=== PATIENT | female | born 1985 | race Two or more races ===

== ENCOUNTER 2018-08-15 11:50 | Emergency (ER) | payer BC ==
[2018-08-15 11:55] VITALS: BP 141/83
[2018-08-15] MEDS ORDERED: NORMAL SALINE 1000 ML 1,000 ML IV ONE (12:01)
[2018-08-15] MEDS ORDERED: HYDROMORPHONE HCL INJ/PF 2 MG/ML AMPULE IV ONE (12:02)
[2018-08-15] MEDS ORDERED: ONDANSETRON HCL INJ/PF 4 MG/2 ML SDV IV ONE (12:02)
--- NOTE | 2018-08-15 12:04 | ER Document Report ---
ED Medical Screen (RME) - General Chief Complaint: Possible Kidney Stone Stated Complaint: FLANK PAIN Time Seen by Provider: 08/15/18 11:59 Notes: Patient is a 32-year-old female that presents to the emergency department for chief complaint of right flank pain. Pain started this morning around 8 AM, got progressively worse, she did receive 60 mill grams of IM Toradol prior to ED arrival, patient works at an urgent care, her urine tested positive for blood , and she came over to the emergency department. No prior history of kidney stones, she does not believe that she is . ROS: Unless otherwise stated in this report the patient's positive and negative responses for review of systems for constitutional, eyes, ENT, cardiovascular, respiratory, gastrointestinal, neurological, genitourinary, musculoskeletal, and integumentary systems and related systems to the presenting problem are either as stated in the HPI or were not pertinent or were negative for the symptoms and/or complaints related to the presenting medical problem. PHYSICAL EXAMINATION: Vital signs reviewed. GENERAL: Well appearing, well-developed, does appear to be in significant pain HEAD: Atraumatic, normocephalic. EYES: Pupils equal round extraocular movements intact, conjunctiva are normal. ENT: Nares patent NECK: Normal range of motion CV: Heart regular rate and rhythm LUNGS: No respiratory distress Abdomen: Right flank tenderness to palpation Musculoskeletal: Normal range of motion NEUROLOGICAL: Normal speech PSYCH: Normal mood, normal affect. MDM: Patient seen and examined for rapid initial assessment. Vital signs reviewed. A comprehensive ED assessment and evaluation of the patient, analysis of test results and completion of the medical decision making process will be conducted by additional ED providers. *Note is created using voice recognition software and may contain spelling, syntax or grammatical errors. Physical Exam - Vital signs Vitals: Temp Pulse Resp BP Pulse Ox 97.7 F 68 18 141/83 H 100 08/15/18 11:54 08/15/18 11:54 08/15/18 11:54 08/15/18 11:54 08/15/18 11:54 Course - Vital Signs Vital signs: Temp Pulse Resp BP Pulse Ox 97.7 F 68 18 141/83 H 100 08/15/18 11:54 08/15/18 11:54 08/15/18 11:54 08/15/18 11:54 08/15/18 11:54
[2018-08-15 13:07] LABS: ABSOLUTE LYMPHOCYTES (AUTO) 1.1 10^3/uL (0.5-4.7); ABSOLUTE MONOCYTES (AUTO) 0.3 10^3/uL (0.1-1.4); ABSOLUTE NEUT (AUTO) 9.1 10^3/uL (1.7-8.2); BASOPHILS % (AUTO) 0.3 % (0-2); EOSINOPHILS % (AUTO) 0.1 % (0-6); HEMATOCRIT 44.2 % (36.0-47.0); HEMOGLOBIN 15.1 g/dL (12.0-15.5); LYMPHOCYTES % (AUTO) 10.4 % (13-45); MEAN CORPUSCULAR HGB CONC 34.1 g/dL (32.0-36.0); MEAN CORPUSCULAR VOLUME 91 fl (80-97); MONOCYTES % (AUTO) 2.4 % (3-13); PLATELET COUNT 251 10^3/uL (150-450); RED BLOOD COUNT 4.86 10^6/uL (3.72-5.28); RED CELL DISTRIBUTION WIDTH 12.2 % (11.5-14.0); SEGMENTED NEUTROPHILS % (AUTO) 86.8 % (42-78); TOTAL CELLS COUNTED % (AUTO) 100 %; WHITE BLOOD COUNT 10.4 10^3/uL (4.0-10.5)
[2018-08-15 13:15] LABS: APPEARANCE,URINE CLOUDY; BILIRUBIN,URINE NEGATIVE (NEGATIVE); COLOR,URINE YELLOW; GLUCOSE, URINE NEGATIVE (NEGATIVE); KETONES,URINE 20 mg/dL (NEGATIVE); LEUKOCYTE ESTERASE,URINE NEGATIVE (NEGATIVE); NITRITE,URINE NEGATIVE (NEGATIVE); PROTEIN,URINE 100 mg/dL (NEGATIVE); URINE SPECIFIC GRAVITY 1.021; UROBILINOGEN,URINE NEGATIVE mg/dL (<2.0)
--- NOTE | 2018-08-15 14:30 | RADIOLOGY REPORT (SQ) ---
EXAM DESCRIPTION: CT ABD/PELVIS NO ORAL OR IV COMPLETED DATE/TIME: 08/15/2018 2:17 pm REASON FOR STUDY: right flank pain COMPARISON: None. TECHNIQUE: CT scan of the abdomen and pelvis performed without intravenous or oral contrast. Images reviewed with lung, soft tissue, and bone windows. Reconstructed coronal and sagittal MPR images revi ewed. All images stored on PACS. All CT scanners at this facility use dose modulation, iterative reconstruction, and/or weight based d osing when appropriate to reduce radiation dose to as low as reasonably achievable (ALARA). [facility]: Dose Right [facility]: CareDose [facility]: Dose Right [facility]: Teradose 4D [facility]: Pheed RADIATION DOSE: CT Rad equipment meets quality standard of care and radiation dose reduction techniq ues were employed. CTDIvol: 4.8 mGy. DLP: 239 mGy-cm.mGy. LIMITATIONS: None. FINDINGS: LOWER CHEST: No significant findings. No nodules or infiltrates. NON-CONTRASTED LIVER, SPLEEN, ADRENALS: Evaluation limited by lack of IV contrast. No identified sign ificant masses. PANCREAS: No masses. No peripancreatic inflammatory changes. GALLBLADDER: No identified stones by CT criteria. No inflammatory changes to suggest cholecystitis. RIGHT KIDNEY AND URETER: No suspicious masses. Assessment limited by lack of IV contrast. 3 mm ston e in the UPJ. Similar size stone in the kidney. Mild hydronephrosis. LEFT KIDNEY AND URETER: No suspicious masses. Assessment limited by lack of IV contrast. No signifi cant calcifications. No hydronephrosis or hydroureter. AORTA AND RETROPERITONEUM: No aneurysm. No retroperitoneal masses or adenopathy. BOWEL AND PERITONEAL CAVITY: No obvious masses or inflammatory changes. No free fluid. APPENDIX: Normal. PELVIS, BLADDER, AND ABDOMINAL WALL:No abnormal masses. No free fluid. Bladder normal. BONES: No significant findings. OTHER: No other significant finding. IMPRESSION: 3 mm stone right UPJ. Mild hydronephrosis. COMMENT: Quality ID # [id number]: Final reports with documentation of one or more dose reduction techniques (e.g., Automated exposure control, adjustment of the mA and/or kV according to patient size, use of iterative reconstruction technique) TECHNICAL DOCUMENTATION: JOB ID: [id number] [employer]- All Rights Reserved Reading location - IP/workstation name: [email or web address]
--- NOTE | 2018-08-15 14:44 | ER Document Report ---
ED General - General Chief Complaint: Possible Kidney Stone Stated Complaint: FLANK PAIN Time Seen by Provider: 08/15/18 11:59 Notes: Patient is a 32-year-old female that presents to the emergency department for chief complaint of right flank pain. 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 She has never had one before, but has seen patients that have had similar symptoms. She did get 60 mg of IM Toradol prior to coming to the emergency department. She rates her pain currently as a 10 out of 10, describes as a sharp and stabbing sensation in her right flank, that radiates towards the groin. She denies any preceding dysuria, hematuria, fevers, chills, night sweats. She does not believe that she is . She denies having any vomiting, but admits to having nausea. Past Medical History: Denies chronic medical conditions Past Surgical History: Tonsillectomy Social History: Denies tobacco, alcohol or drug use Family History: Reviewed and noncontributory for presenting illness Allergies: Reviewed, see documented allergy list. REVIEW OF SYSTEMS: Unless otherwise stated in this report the patient's positive and negative responses for review of systems for constitutional, eyes, ENT, cardiovascular, respiratory, gastrointestinal, neurological, genitourinary, musculoskeletal, and integumentary systems and related systems to the presenting problem are either as stated in the HPI or were not pertinent or were negative for the symptoms and/or complaints related to the presenting medical problem. PHYSICAL EXAMINATION: Vital signs reviewed, nursing noted reviewed. GENERAL: Well-appearing, well-nourished and appears to be in significant pain HEAD: Atraumatic, normocephalic. EYES: Eyes appear normal, extraocular movements intact, sclera anicteric, conjunctiva are normal. ENT: nares patent, oropharynx clear without exudates. Moist mucous membranes. NECK: Normal range of motion, supple without lymphadenopathy LUNGS: Breath sounds clear to auscultation bilaterally and equal. No wheezes rales or rhonchi. HEART: Regular rate and rhythm without murmurs ABDOMEN: Soft, right CVA tenderness with palpation, normoactive bowel sounds. No rebound, guarding, or rigidity. No masses appreciated. EXTREMITIES: Nontender, good range of motion, no pitting or edema. NEUROLOGICAL: No focal neurological deficits. Moves all extremities spontaneously Motor and sensory grossly intact on exam. PSYCH: Patient is uncomfortable, but is appropriate SKIN: Warm, Dry, normal turgor, no rashes or lesions noted on exposed skin Past Medical History - Social History Smoking Status: Former Smoker Chew tobacco use (# tins/day): No Frequency of alcohol use: None Drug Abuse: None Family History: Reviewed & Not Pertinent Patient has suicidal ideation: No Patient has homicidal ideation: No Pulmonary Medical History: Reports: Hx Asthma Neurological Medical History: Reports: Hx Migraine Renal/ Medical History: Denies: Hx Peritoneal Dialysis Past Surgical History: Reports: Hx Tonsillectomy Physical Exam - Vital signs Vitals: Temp Pulse Resp BP Pulse Ox 97.7 F 68 18 141/83 H 100 08/15/18 11:54 08/15/18 11:54 08/15/18 11:54 08/15/18 11:54 08/15/18 11:54 Course - Re-evaluation Re-evalutation: Patient seen and examined vital signs reviewed. Laboratory data and imaging were ordered as appropriate for the patient's presenting symptoms and complaint, with consideration of any critical or life threatening conditions that may be associated with their obtained history and exam as noted above. Patient was treated with IV fluids, Zofran, and 0.5 mg of IV Dilaudid Results were reviewed when available and demonstrated CT demonstrated 3 mm ureteral stone, which is consistent with the patient's symptoms, is at the [facility] patient be treated for this, she was much improved after medications, no complaints of pain. No nausea or vomiting. Urinalysis did not demonstrate signs of infection, only hematuria, her blood work did not demonstrate any leukocytosis, she did have an elevation in her lipase, however the patient did not have any epigastric pain, this may be reactionary from dry heaving, advised patient to follow-up if her symptoms worsen, or pain was not controlled at home , which she was agreeable. I do not believe this patient has acute pancreatitis , her CT imaging did not demonstrate peripancreatic stranding either. Evaluation was most consistent with right ureteral stone patient discharged home with Flomax, urinary strainer, naproxen, and Percocet to take for pain. Given urology to follow-up with Results were discussed with the patient at this point, after careful consideration I feel that that patient can be discharged from the emergency department, the patient was educated treatments and reasons to return to the emergency department based on their presumed diagnosis as noted above, they were advised to followup with a primary care physician in 2-3 days. Patient was agreeable to plan of care. *Note is created using voice recognition software and may contain spelling, syntax or grammatical errors. Laboratory 08/15/18 08/15/18 08/15/18 12:21 12:42 12:42 WBC 10.4 RBC 4.86 Hgb 15.1 Hct 44.2 MCV 91 MCH 31.0 MCHC 34.1 RDW 12.2 Plt Count 251 Seg Neutrophils % 86.8 H Lymphocytes % 10.4 L Monocytes % 2.4 L Eosinophils % 0.1 Basophils % 0.3 Absolute Neutrophils 9.1 H Absolute Lymphocytes 1.1 Absolute Monocytes 0.3 Absolute Eosinophils 0.0 Absolute Basophils 0.0 Sodium Cancelled Potassium Cancelled Chloride Cancelled Carbon Dioxide Cancelled Anion Gap Cancelled BUN Cancelled Creatinine Cancelled Est GFR ( Amer) Cancelled Est GFR (Non-Af Amer) Cancelled Glucose Cancelled Calcium Cancelled Total Bilirubin Cancelled Direct Bilirubin Cancelled Neonat Total Bilirubin Cancelled Neonat Direct Bilirubin Cancelled Neonat Indirect Bili Cancelled AST Cancelled ALT Cancelled Alkaline Phosphatase Cancelled Total Protein Cancelled Albumin Cancelled Lipase Cancelled Serum HCG, Qual Urine Color YELLOW Urine Appearance CLOUDY Urine pH 6.0 Ur Specific Staples 1.021 Urine Protein 100 H Urine Glucose (UA) NEGATIVE Urine Ketones 20 H Urine Blood LARGE H Urine Nitrite NEGATIVE Urine Bilirubin NEGATIVE Urine Urobilinogen NEGATIVE Ur Leukocyte Esterase NEGATIVE Urine WBC (Auto) 4 Urine RBC (Auto) >182 Squamous Epi Cells Auto 3 Urine Mucus (Auto) OCC Urine Ascorbic Acid 20 H 08/15/18 08/15/18 12:42 14:07 WBC RBC Hgb Hct MCV MCH MCHC RDW Plt Count Seg Neutrophils % Lymphocytes % Monocytes % Eosinophils % Basophils % Absolute Neutrophils Absolute Lymphocytes Absolute Monocytes Absolute Eosinophils Absolute Basophils Sodium 136.9 L Potassium 4.9 Chloride 104 Carbon Dioxide 23 Anion Gap 10 BUN 13 Creatinine 0.64 Est GFR ( Amer) > 60 Est GFR (Non-Af Amer) > 60 Glucose 89 Calcium 9.8 Total Bilirubin 0.7 Direct Bilirubin 0.2 Neonat Total Bilirubin Not Reportable Neonat Direct Bilirubin Not Reportable Neonat Indirect Bili Not Reportable AST 19 ALT 13 Alkaline Phosphatase 45 Total Protein 7.8 Albumin 4.9 Lipase 1365.7 H Serum HCG, Qual NEGATIVE Urine Color Urine Appearance Urine pH Ur Specific Staples Urine Protein Urine Glucose (UA) Urine Ketones Urine Blood Urine Nitrite Urine Bilirubin Urine Urobilinogen Ur Leukocyte Esterase Urine WBC (Auto) Urine RBC (Auto) Squamous Epi Cells Auto Urine Mucus (Auto) Urine Ascorbic Acid Abdomen/Pelvis CT 08/15/18 12:02 IMPRESSION: 3 mm stone right UPJ. Mild hydronephrosis. - Vital Signs Vital signs: Temp Pulse Resp BP Pulse Ox 97.7 F 68 18 141/83 H 100 08/15/18 11:54 08/15/18 11:54 08/15/18 11:54 08/15/18 11:54 08/15/18 11:54 - Laboratory Result Diagrams: 08/15/18 12:42 08/15/18 14:07 Laboratory results interpreted by me: 08/15/18 08/15/18 08/15/18 12:21 12:42 14:07 Seg Neutrophils % 86.8 H Lymphocytes % 10.4 L Monocytes % 2.4 L Absolute Neutrophils 9.1 H Sodium 136.9 L Lipase 1365.7 H Urine Protein 100 H Urine Ketones 20 H Urine Blood LARGE H Urine Ascorbic Acid 20 H Discharge - Discharge Clinical Impression: Ureteral stone Hematuria Qualifiers: Hematuria type: unspecified type Qualified Code(s): R31.9 - Hematuria, unspecified Condition: Stable Disposition: HOME, SELF-CARE Instructions: Kidney Stone ([facility]) Additional Instructions: Please return to the emergency department if you have any worsening, or concern of your symptoms. Please return to the emergency department if you develop chest pain, difficulty breathing, severe abdominal pain, or ongoing vomiting. Please follow-up with your primary care physician in 2-3 days and any other recommended physicians. If prescribed, take all medications as directed. If you have any questions or concerns do not hesitate to return the emergency department for evaluation. Prescriptions: Naproxen [Naprosyn] 500 mg PO BID #30 tablet Ondansetron [Zofran Odt 4 mg Tablet] 1 tab PO Q8H PRN #15 tab.rapdis PRN Reason: For Nausea/Vomiting Oxycodone HCl/Acetaminophen [Percocet 5-325 mg Tablet] 1 tab PO Q8H PRN #15 tab PRN Reason: general pain Tamsulosin HCl [Flomax] 0.4 mg PO DAILY #10 cap.er.24h Referrals: DEIRDRE LI MD [NO LOCAL MD] - Follow up in 3-5 days
[2018-08-15 14:50] LABS: ALANINE AMINOTRANSFERASE 13 U/L (9-52); ALBUMIN 4.9 g/dL (3.5-5.0); ALKALINE PHOSPHATASE 45 U/L (38-126); ANION GAP 10 (5-19); ASPARTATE AMINO TRANSFERASE 19 U/L (14-36); BILIRUBIN,DIRECT 0.2 mg/dL (0.0-0.4); BILIRUBIN,TOTAL 0.7 mg/dL (0.2-1.3); BLOOD UREA NITROGEN 13 mg/dL (7-20); CALCIUM 9.8 mg/dL (8.4-10.2); CARBON DIOXIDE 23 mmol/L (22-30); CHLORIDE 104 mmol/L (98-107); GLUCOSE 89 mg/dL (75-110); LIPASE 1365.7 U/L (23-300); POTASSIUM 4.9 mmol/L (3.6-5.0); SODIUM 136.9 mmol/L (137-145); TOTAL PROTEIN 7.8 g/dL (6.3-8.2)
== END 2018-08-15 14:52 | disposition home or self-care (01) ==
LOC: ER 11:50
DX: N20.1 Calculus of ureter (principal); R31.9 Hematuria, unspecified; R10.9 Unspecified abdominal pain
CPT/HCPCS: 99284; 96361; 96374; 96375; 36415; 83690; 84703; 85025; 80053; 81001; 74176; J1170; J2405; J7030

== ENCOUNTER → 2019-09-26 | Outpatient (CLI) | payer BC ==
[2019-09-26 11:22] LABS: FREE T4 (FREE THYROXINE) 1.01 ng/dL (0.78-2.19); THYROID STIMULATING HORMONE 1.24 uIU/mL (0.47-4.68)
== END ==
LOC: OD 07:35
PROVIDERS: ATTEND Family Medicine
DX: L65.9 Nonscarring hair loss, unspecified (principal); R68.82 Decreased libido
CPT/HCPCS: 36415; 82670; 84144; 84403; 84439; 84443